=== PATIENT | male | born 1965 | race Caucasian/White ===

== ENCOUNTER 2017-01-04 14:05 | Emergency (ER) | payer MEDICAID, OTHER ==
[~2017-01-04] VITALS: Ht 152.4 cm; Wt 86.5 kg
[2017-01-04 14:06] VITALS: BP 136/83
[2017-01-04] MEDS ORDERED: FLEC50TA25 PO (14:37)
[2017-01-04] MEDS ORDERED: LOSA50TA6 PO (14:37)
[2017-01-04] MEDS ORDERED: METO-99 PO (14:37)
[2017-01-04] MEDS ORDERED: SERT100T5 PO (14:37)
== END 2017-01-04 15:02 | disposition home or self-care (01) ==
LOC: ED 14:30
DX: J01.90 Acute sinusitis, unspecified (principal); L25.9 Unspecified contact dermatitis, unspecified cause; I10 Essential (primary) hypertension; I48.91 Unspecified atrial fibrillation
CPT/HCPCS: 99283

== ENCOUNTER 2017-01-22 13:42 | Emergency (ER) | payer MEDICAID ==
[~2017-01-22] VITALS: Ht 182.9 cm; Wt 89.9 kg
[~2017-01-22 13:42] MED LIST: FLEC50TA25 PO; LOSA50TA6 PO; METO-99 PO; SERT100T5 PO
[2017-01-22 13:48] VITALS: BP 125/85
== END 2017-01-22 14:31 | disposition home or self-care (01) ==
LOC: ED 14:00
DX: Z76.0 Encounter for issue of repeat prescription (principal); F33.0 Major depressive disorder, recurrent, mild; I10 Essential (primary) hypertension; I48.91 Unspecified atrial fibrillation
CPT/HCPCS: 99283

== ENCOUNTER 2017-04-10 17:29 | Emergency (ER) | payer MEDICAID ==
[~2017-04-10] VITALS: Ht 182.9 cm; Wt 98.2 kg
[2017-04-10 17:33] VITALS: BP 147/94
[2017-04-10 18:14] LABS: RAPID INFLUENZA A Negative (Negative); RAPID INFLUENZA B Negative (Negative)
== END 2017-04-10 19:11 | disposition home or self-care (01) ==
LOC: ED 19:00
DX: B34.9 Viral infection, unspecified (principal); I48.91 Unspecified atrial fibrillation; I10 Essential (primary) hypertension
CPT/HCPCS: 87400; 99284